=== PATIENT | female | born 1970 | race Caucasian/White ===

== ENCOUNTER 2016-06-25 10:11 | Outpatient (CLI) | payer MEDICARE, MEDICAID ==
[2016-06-25 11:56] LABS: #Basophils 0.1 thou/uL (0.0-0.2); #Eosinphils 0.3 thou/uL (0.0-0.7); #Lymphocytes 1.9 thou/uL (1.20-3.40); #Monocytes 0.5 thou/uL (0.11-0.59); #Neutrophils 6.5 thou/uL (1.40-6.50); %Basophils 0.7 % (0.0-1.0); %Eosinophils 2.8 % (0.0-10.0); Hematocrit 39.7 % (36.0-47.0); Mean Platelet Volume 5.1 fL (7.4-10.4); Red Blood Cell (RBC) Count 4.82 mill/uL (4.20-5.40); White Blood Cell (WBC) Count 9.2 thou/uL (4.8-10.8)
[2016-06-25 12:06] LABS: ALT (SGPT) 24 U/L (0-55); AST (SGOT) 21 U/L (5-34); Alkaline Phosphatase 75 U/L (40-150); Anion Gap 12 mmol/L (10-20); BUN (Urea Nitrogen) 12 mg/dL (7.0-18.7); Bilirubin, Total 0.4 mg/dL (0.2-1.2); Calc. Creatinine Clearance 0 mL/min (70-130); Calcium 8.9 mg/dL (7.8-10.44); Carbon Dioxide 25 mmol/L (22-29); Chloride 107 mmol/L (98-107); Estimated GFR-MDRD 84; Globulin 3.2 g/dL (2.4-3.5); LDL Cholesterol, Calculated 81 mg/dL; Protein, Total 7.2 g/dL (6.0-8.3)
== END 2016-06-25 10:12 | disposition home or self-care (01) ==
LOC: HPCALD 10:11
PROVIDERS: ATTEND Family Medicine
DX: Z13.6 Encounter for screening for cardiovascular disorders (principal); E03.9 Hypothyroidism, unspecified
CPT/HCPCS: 36415; 80053; 80061; 84439; 84443; 85025

== ENCOUNTER 2016-12-24 09:20 | Outpatient (CLI) | payer MEDICARE, MEDICAID ==
[2016-12-24 10:36] LABS: ALT (SGPT) 36 U/L (8-55); AST (SGOT) 36 U/L (5-34); Alkaline Phosphatase 62 U/L (40-150); Anion Gap 13 mmol/L (10-20); BUN (Urea Nitrogen) 7 mg/dL (7.0-18.7); Bilirubin, Total 0.4 mg/dL (0.2-1.2); Calc. Creatinine Clearance 0 mL/min (70-130); Carbon Dioxide 25 mmol/L (22-29); Chloride 105 mmol/L (98-107); Estimated GFR-MDRD 89; Globulin 3.1 g/dL (2.4-3.5); Glucose 114 mg/dL (70-105); Protein, Total 7.1 g/dL (6.0-8.3); Sodium 139 mmol/L (136-145)
[2016-12-24 10:45] LABS: Free T4 (Free Thyroxine) 1.01 ng/dL (0.70-1.48); Thyroid Stimulating Hormone 1.5716 uIU/mL (0.35-4.94)
== END 2016-12-24 09:21 | disposition home or self-care (01) ==
LOC: HPCALD 09:20
PROVIDERS: ATTEND Family Medicine
DX: E03.9 Hypothyroidism, unspecified (principal)
CPT/HCPCS: 36415; 80053; 84439; 84443

== ENCOUNTER 2018-04-08 01:53 | Emergency (ER) | payer MEDICARE, MEDICAID ==
[2018-04-08] MEDS ORDERED: Ondansetron PF 4 MG/2 ML Vial ONE ×2 (02:21→03:19)
[2018-04-08 02:44] LABS: CKMB 0.4 ng/mL (0-6.6); Troponin I Less than 0.010 ng/mL (< 0.028)
[2018-04-08 02:47] LABS: ALT (SGPT) 173 U/L (8-55); AST (SGOT) 281 U/L (5-34); Alkaline Phosphatase 104 U/L (40-150); Anion Gap 14 mmol/L (10-20); BUN (Urea Nitrogen) 14 mg/dL (7.0-18.7); Calc. Creatinine Clearance 0 mL/min (70-130); Calcium 9.2 mg/dL (7.8-10.44); Carbon Dioxide 20 mmol/L (22-29); Chloride 105 mmol/L (98-107); Estimated GFR-MDRD Greater than 90; Globulin 3.5 g/dL (2.4-3.5); Glucose 196 mg/dL (70-105); Potassium 3.9 mmol/L (3.5-5.1); Protein, Total 7.5 g/dL (6.0-8.3); Sodium 135 mmol/L (136-145)
[2018-04-08 02:57] LABS: #Basophils 0.1 thou/uL (0.0-0.2); #Eosinphils 0.1 thou/uL (0.0-0.7); #Lymphocytes 1.1 thou/uL (1.20-3.40); #Monocytes 0.5 thou/uL (0.11-0.59); #Neutrophils 9.1 thou/uL (1.40-6.50); %Basophils 0.9 % (0.0-1.0); %Lymphocytes 10.1 % (21.0-51.0); %Monocytes 4.5 % (0.0-10.0); %Neutrophils 83.5 % (42.0-75.0); Hemoglobin 12.4 g/dL (12.0-16.0); MDiff Complete? YES; Mean Corpuscular HGB CONC 32.9 g/dL (32.0-36.0); Mean Corpuscular Hemoglobin 24.7 pg (27.0-31.0); Mean Corpuscular Volume 75.1 fL (78.0-98.0); Mean Platelet Volume 6.2 fL (7.4-10.4); Microcytosis SLIGHT = 6-15 cells (100X) (0-5/hpf); PLT Morphology Comment Appears Adequate; Platelet Count 361 thou/uL (130-400); Polychromasia SLIGHT = 2-3 cells (100X) (0-2/hpf); RBC Distribution Width 14.2 % (11.5-14.5); Red Blood Cell (RBC) Count 5.01 mill/uL (4.20-5.40); Small Platelets SLIGHT
[2018-04-08] MEDS ORDERED: Fentanyl 100 MCG/2 ML VIAL ONE ×2 (03:19→03:55)
[2018-04-08] MEDS ORDERED: Famotidine In NaCl 20 mg/50 ml Premix Bag ONE ×2 (03:19→03:22)
[2018-04-08 03:32] LABS: Lipase 9020 U/L (8-78)
--- NOTE | 2018-04-08 07:40 | RAD ---
PORTABLE CHEST: DATE: 04/08/2018. FINDINGS: An AP portable film at 0156 is compared with a 06/24/2014 study. The heart is minimally enlarged, perhaps borderline in size. It is not much [id number] than before. There is no vascular congestion, edema, or pleural effusion. The lungs are clear. The trachea is m idline. IMPRESSION: No acute thoracic findings. POS: HOME
== END 2018-04-08 04:05 | disposition short-term general hospital (02) ==
LOC: BURERS 01:53
DX: K85.90 Acute pancreatitis without necrosis or infection, unspecified (principal); R94.5 Abnormal results of liver function studies; J45.909 Unspecified asthma, uncomplicated; F31.9 Bipolar disorder, unspecified; Z87.891 Personal history of nicotine dependence
CPT/HCPCS: 71045; 80053; 82553; 83690; 84484; 85025; 93005; 94760; 96361; 96374; 96375; 96376; J2405; J3010

== ENCOUNTER 2020-11-13 16:47 | Emergency (ER) | payer MEDICARE, MEDICAID ==
[2020-11-13 17:20] LABS: Bilirubin Negative (Negative); Blood, Urine Large (Negative); Clarity Cloudy (Clear); Glucose, Urine (Dipstick) Negative (Negative); Ketone, Urine Negative (Negative); Leukocyte Negative (Negative); Nitrite Negative (Negative); Protein, Urine (Dipstick) Negative (Neg-Trace); Specific Gravity, Urine 1.015 (1.005-1.030); Urobilinogen 0.2 mg/dL (Less than 2); pH, Urine 5.5 (5.0-9.0)
[2020-11-13 17:22] LABS: Bacteria/HPF 2+ HPF (None Seen); Mucous/LPF Few LPF (<2+); RBC/HPF Greater than 50 HPF (0-3); WBC/HPF 0-3 HPF (0-3)
[2020-11-13 17:53] LABS: #Basophils 0.1 thou/uL (0.0-0.2); #Eosinphils 0.3 thou/uL (0.0-0.7); #Lymphocytes 2.8 thou/uL (1.20-3.40); #Monocytes 0.6 thou/uL (0.11-0.59); %Basophils 0.7 % (0.0-1.0); %Eosinophils 2.8 % (0.0-10.0); %Lymphocytes 25.9 % (21.0-51.0); %Monocytes 5.2 % (0.0-10.0); %Neutrophils 65.3 % (42.0-75.0); Hemoglobin 11.8 g/dL (12.0-16.0); Mean Corpuscular HGB CONC 30.1 g/dL (32.0-36.0); Mean Corpuscular Hemoglobin 24.1 pg (27.0-31.0); Mean Platelet Volume 5.7 fL (7.4-10.4); Platelet Count 378 thou/uL (130-400); RBC Distribution Width 13.6 % (11.5-14.5); Red Blood Cell (RBC) Count 4.89 mill/uL (4.20-5.40); White Blood Cell (WBC) Count 10.8 thou/uL (4.8-10.8)
[2020-11-13 17:59] LABS: MDiff Complete? YES
[2020-11-13 18:09] LABS: ALT (SGPT) 22 U/L (8-55); AST (SGOT) 21 U/L (5-34); Albumin 4.1 g/dL (3.5-5.0); Alkaline Phosphatase 59 U/L (40-110); Anion Gap 15 mmol/L (10-20); BUN (Urea Nitrogen) 12 mg/dL (9.8-20.1); Bilirubin, Total 0.3 mg/dL (0.2-1.2); Calc. Creatinine Clearance 0 mL/min (70-130); Calcium 9.5 mg/dL (7.8-10.44); Carbon Dioxide 24 mmol/L (22-29); Chloride 105 mmol/L (98-107); Globulin 3.1 g/dL (2.4-3.5); Glucose 105 mg/dL (70-105); Potassium 3.7 mmol/L (3.5-5.1); Protein, Total 7.2 g/dL (6.0-8.3); Sodium 140 mmol/L (136-145)
== END 2020-11-13 18:21 | disposition home or self-care (01) ==
LOC: BURERS 16:47
DX: N13.2 Hydronephrosis with renal and ureteral calculous obstruction (principal); E05.90 Thyrotoxicosis, unspecified without thyrotoxic crisis or storm; J45.909 Unspecified asthma, uncomplicated; Z87.891 Personal history of nicotine dependence; Z79.899 Other long term (current) drug therapy
CPT/HCPCS: 36415; 74176; 80053; 81003; 81015; 85025; 87086

== ENCOUNTER 2022-09-16 11:50 | Outpatient (CLI) | payer MEDICARE, OTHER | END 2022-09-16 11:51 | disposition home or self-care (01) | LOC: BURRAD 11:50 | PROVIDERS: ATTEND Nurse Practitioner Family | DX: R07.9 Chest pain, unspecified (principal) | CPT/HCPCS: 71046 ==

== ENCOUNTER 2024-01-19 12:27 | Emergency (ER) | payer MEDICAID, MEDICARE, OTHER ==
[2024-01-19 13:47] LABS: Bilirubin Small (Negative); Blood, Urine Trace (Negative); Clarity Cloudy (Clear); Glucose, Urine (Dipstick) Negative (Negative); Ketone, Urine Trace mg/dL (Negative); Leukocyte Trace (Negative); Nitrite Negative (Negative); Protein, Urine (Dipstick) 30 mg/dL (Neg-Trace); Specific Gravity, Urine 1.025 (1.005-1.030); Urobilinogen 0.2 mg/dL (Less than 2); pH, Urine 5.5 (5.0-9.0)
[2024-01-19 13:56] LABS: Bacteria/HPF 2+ HPF (None Seen); CAUTI Indications for Culture Dysuria,urgency,freq; Mucous/LPF 2+ LPF (<2+); RBC/HPF 0-3 HPF (0-3)
[2024-01-19 13:57] LABS: Urine Culture Reflex Yes Yes
== END 2024-01-19 14:30 | disposition home or self-care (01) ==
LOC: BURERS 12:27
DX: N39.0 Urinary tract infection, site not specified (principal); Z87.891 Personal history of nicotine dependence
CPT/HCPCS: 36415; 81001; 87086; 99284

== ENCOUNTER 2024-01-22 10:18 | Emergency (ER) | payer OTHER | END 2024-01-22 10:43 | disposition home or self-care (01) | LOC: BURERS 10:18 | DX: N95.0 Postmenopausal bleeding (principal); Z87.891 Personal history of nicotine dependence | CPT/HCPCS: 99283 ==

== ENCOUNTER 2024-04-17 20:16 | Emergency (ER) | payer OTHER, MEDICAID ==
[2024-04-17] MEDS ORDERED: Acetaminophen/Codeine 30-300mg Tablet ONE (20:29)
[2024-04-17] MEDS ORDERED: predniSONE 20 MG TAB ONE (20:29)
[2024-04-17] MEDS ORDERED: Azithromycin 250 MG TAB ONE (20:30)
== END 2024-04-17 20:30 | disposition home or self-care (01) ==
LOC: BURERS 20:16
DX: R05.9 Cough, unspecified (principal)
CPT/HCPCS: 99283; J7512

== ENCOUNTER 2025-03-17 10:41 | Emergency (ER) | payer OTHER, MEDICAID ==
[2025-03-17 11:20] LABS: Glucose, Urine (Dipstick) Negative (Negative); Leukocyte Negative (Negative); Protein, Urine (Dipstick) Negative (Neg-Trace); Specific Gravity, Urine 1.015 (1.005-1.030)
[2025-03-17 11:30] LABS: Bacteria/HPF Rare-Few HPF (None Seen); CAUTI Indications for Culture Pelvic or flank pain; RBC/HPF 0-3 HPF (0-3); WBC/HPF 0-3 HPF (0-3)
[2025-03-17 11:31] LABS: Urine Culture Reflex No No
[2025-03-17] MEDS ORDERED: predniSONE 20 MG TAB ONE (11:49)
== END 2025-03-17 11:56 | disposition home or self-care (01) ==
LOC: BURERS 10:41
DX: S39.011A Strain of muscle, fascia and tendon of abdomen, initial encounter (principal); X58.XXXA Exposure to other specified factors, initial encounter
CPT/HCPCS: 81001; 99283; J7512

== ENCOUNTER 2025-04-19 10:38 | Emergency (ER) | payer OTHER, MEDICAID ==
[2025-04-19] MEDS ORDERED: Fluconazole 100 MG TAB ONE (11:14)
== END 2025-04-19 12:26 | disposition home or self-care (01) ==
LOC: BURERS 10:38
DX: B37.31 Acute candidiasis of vulva and vagina (principal); Z59.71 Insufficient health insurance coverage
CPT/HCPCS: 72170

== ENCOUNTER 2025-04-24 07:55 | Emergency (ER) | payer OTHER, MEDICAID ==
[2025-04-24 08:57] LABS: #Basophils 0.0 thou/uL (0.0-0.2); #Eosinophils 0.2 thou/uL (0.0-0.7); #Lymphocytes 1.6 thou/uL (1.20-3.40); #Monocytes 0.5 thou/uL (0.11-0.59); #Neutrophils 6.2 thou/uL (1.40-6.50); %Basophils 0.5 % (0.0-1.0); %Eosinophils 2.0 % (0.0-10.0); %Lymphocytes 18.6 % (21.0-51.0); %Monocytes 5.5 % (0.0-10.0); %Neutrophils 73.4 % (42.0-75.0); Hematocrit 41.8 % (36.0-47.0); Hemoglobin 13.1 g/dL (12.0-16.0); Mean Corpuscular Hemoglobin 26.1 pg (27.0-31.0); Mean Corpuscular Volume 83.2 fl (78.0-98.0); Platelet Count 331 10x3/uL (130-400); Red Blood Cell (RBC) Count 5.02 mill/uL (4.20-5.40); White Blood Cell (WBC) Count 8.4 10x3/uL (4.8-10.8)
[2025-04-24 09:10] LABS: Troponin I 0.015 ng/mL (< 0.028)
[2025-04-24 09:14] LABS: ALT (SGPT) 21 U/L (Less than 34); AST (SGOT) 23 U/L (11-34); Albumin 3.9 g/dL (3.1-4.5); Alkaline Phosphatase 65 U/L (40-110); Anion Gap 15 mmol/L (10-20); BUN (Urea Nitrogen) 18 mg/dL (9.8-20.1); Bilirubin, Total 0.5 mg/dL (0.3-1.2); Calc. Creatinine Clearance 0 mL/min (70-130); Calcium 8.8 mg/dL (7.8-10.44); Carbon Dioxide 23 mmol/L (22-29); Chloride 106 mmol/L (98-107); Globulin 2.7 g/dL (2.4-3.5); Glucose 139 mg/dL (70-105); Potassium 4.3 mmol/L (3.5-5.1); Sodium 140 mmol/L (136-145)
[2025-04-24] MEDS ORDERED: Acetaminophen 500 MG TAB ONE (09:33)
== END 2025-04-24 10:54 | disposition home or self-care (01) ==
LOC: BURERS 07:55
DX: S43.402A Unspecified sprain of left shoulder joint, initial encounter (principal); X58.XXXA Exposure to other specified factors, initial encounter
CPT/HCPCS: 36415; 71045; 80053; 83880; 84484; 85025; 93005

== ENCOUNTER 2025-05-02 13:34 | Emergency (ER) | payer OTHER, MEDICAID ==
[2025-05-02] MEDS ORDERED: HYDROcodone/Acetaminophen 5/325 mg Tablet ONE (14:05)
== END 2025-05-02 15:00 | disposition home or self-care (01) ==
LOC: BURERS 13:34
DX: S42.211A Unspecified displaced fracture of surgical neck of right humerus, initial encounter for closed fracture (principal); W01.0XXA Fall on same level from slipping, tripping and stumbling without subsequent striking against object, initial encounter
CPT/HCPCS: 99283